=== PATIENT | female | born 1970 | race Two or more races ===

== ENCOUNTER 2018-01-04 23:31 | Emergency (ER) | payer MEDICAID, OTHER ==
[~2018-01-04] VITALS: Ht 160 cm; Wt 65.8 kg
[2018-01-04 23:35] VITALS: BP 148/87
== END 2018-01-05 01:40 | disposition home or self-care (01) ==
LOC: ER 23:48
DX: F11.10 Opioid abuse, uncomplicated (principal); M79.604 Pain in right leg; L98.8 Other specified disorders of the skin and subcutaneous tissue; F10.10 Alcohol abuse, uncomplicated; F17.200 Nicotine dependence, unspecified, uncomplicated; F32.9 Major depressive disorder, single episode, unspecified
CPT/HCPCS: 99283; A4606; Z7610

== ENCOUNTER 2018-12-13 00:48 | Emergency (ER) | payer MEDICAID, OTHER ==
[~2018-12-13] VITALS: Ht 160 cm; Wt 63.5 kg
[2018-12-13 00:55] VITALS: BP 129/75
[2018-12-13] MEDS ORDERED: SULFAMETH/TRIMETH 800/160 MG 1 UDTAB TABLET PO ONE ×2 (01:26→01:30)
[2018-12-13] MEDS ORDERED: HYDROCODONE/APAP 10/325MG 1 EA TABLET ONE (01:26)
[2018-12-13] MEDS ORDERED: HYDROCODONE/APAP 10/325MG 1 EA TABLET PO ONE (01:30)
--- NOTE | 2018-12-13 01:40 | NUR ---
PROVIDED PT WITH HOMELESS RESOURCES AND A FEW BANDAIDS, PER PT REQUEST.
--- NOTE | 2018-12-13 01:40 | NUR ---
Patient does not wish to proceed with medical care recommended by Dr. ANN. Patient given information related to possible complications, up to and including , which could occur as a result of leaving the hospital at this time. Patient verbalizes understanding of risks involved due to leaving against medical advice. Patient has signed AMA form. Patient discharged to home in stable condition. Written and verbal after care instructions given. Patient verbalizes understanding of instruction.
== END 2018-12-13 01:42 | disposition left against medical advice (07) ==
LOC: ER 00:52
DX: L02.415 Cutaneous abscess of right lower limb (principal); L02.416 Cutaneous abscess of left lower limb; L02.31 Cutaneous abscess of buttock; F32.9 Major depressive disorder, single episode, unspecified; F17.200 Nicotine dependence, unspecified, uncomplicated; F19.10 Other psychoactive substance abuse, uncomplicated
CPT/HCPCS: 99283; 99406; A4606; Z7610

== ENCOUNTER 2021-08-07 23:52 | Emergency (ER) | payer MEDICAID, OTHER ==
[~2021-08-07] VITALS: Ht 167.6 cm; Wt 65.8 kg
[2021-08-08 00:07] VITALS: BP 106/67
--- NOTE | 2021-08-08 00:24 | NUR ---
BIBRA FROM THE STREET LYING DOWN. DROWSY OTHERWISE AZOX4. NOT IN RESP DISTRESS. AMBULATORY BROUGHT IN FOR FOUND ON THE GROUND. PT ADMITTED TO TAKING 2 CLONOPIN OF UNKNOWN DOSE. PT DENIED TO HAVE A BLOOD DRAW WELL GIVING URINE. PT WANTS TO LEAVE AND GO TO HIS BOYFRIEND. SHE DENIED ANY SUICIDAL NOR HOMICIDAL IDEATION. AMBULATORY ON STEADY GAIT. IS AWARE.
--- NOTE | 2021-08-08 00:30 | NUR ---
Patient does not wish to proceed with medical care recommended by Dr. Daphne Patiño. Patient given information related to possible complications, up to and including , which could occur as a result of leaving the hospital at this time. Patient verbalizes understanding of risks involved due to leaving against medical advice. Patient has signed AMA form.
== END 2021-08-08 00:56 | disposition left against medical advice (07) ==
LOC: ER 08-08 00:05
DX: F11.10 Opioid abuse, uncomplicated (principal); F32.9 Major depressive disorder, single episode, unspecified; F17.200 Nicotine dependence, unspecified, uncomplicated